=== PATIENT | male | born 1955 | race Caucasian/White ===

== ENCOUNTER 2019-12-18 23:34 | Emergency (ER) | payer BC ==
[2019-12-18] MEDS ORDERED: Diphtheria,Pertussis(Acell),Tetanus Vaccine 0.5 ML Syringe IM ONE (23:51)
--- NOTE | 2019-12-19 00:10 | EDM.PDOC ---
ED HPI GENERAL MEDICAL PROBLEM - General Chief Complaint: Head Injury Stated Complaint: head laceration/trip fall Time Seen by Provider: 12/18/19 23:35 - History of Present Illness INITIAL COMMENTS - FREE TEXT/NARRATIVE: HISTORY AND PHYSICAL: History of present illness: This is a 63-year-old gentleman who presents ER today secondary to injury to his forehead secondary to a trip and fall. Patient reports no dizziness or loss of consciousness. Patient denies any pain anywhere else in his body. Patient denies any pain to his lower extremities, hips, upper extremities, abdomen, chest, back. Patient reports no headache. Patient reports no nausea, vomiting. Patient has any recent fevers, shakes, chills. Patient reports he lost footing and fell to the ground. Patient reports no preceding dizziness or presyncopal episodes. Review of systems: As per history of present illness and below otherwise all systems reviewed and negative. Past medical history: As per history of present illness and as reviewed below otherwise noncontributory. Surgical history: As per history of present illness and as reviewed below otherwise noncontributory. Social history: No reported history of drug or alcohol abuse. Family history: As per history of present illness and as reviewed below otherwise noncontributory. Physical exam: Constitutional: Patient is oriented to person, place, and time. Appears well- developed and well-nourished. No distress. HEENT: Moist mucous membranes Head: Normocephalic. 5 cm laceration to forehead. Eyes: Right eye exhibits no discharge. Left eye exhibits no discharge. No scleral icterus Neck: Normal range of motion. No tracheal deviation present. Cardiovascular: Normal rate and regular rhythm. Pulmonary: Effort normal, no respiratory distress. Abdominal: No distention Musculoskeletal: Normal range of motion Neurologic: Alert and oriented to person, place and time. Skin: [place], warm and dry. Psychiatric: Normal mood and affect. Behavior is normal. Judgment and thought content normal. Nursing note and vital signs have been reviewed Patient has no C-spine T-spine or L-spine tenderness to palpation. Patient has no left upper or right upper quadrant tenderness to palpation. Patient has no crepitus to palpation to the anterior chest wall. Patient is neurologically intact. Patient does not present with any signs or or symptoms that would be consistent with acute intracranial, intra-abdominal, intrathoracic, or long bone injury. All long bones have been palpated and range of motion been performed and there is no evidence of any acute pathology. Diagnostics: CT head and C-spine CT the head revealed subdural hematoma over the left hemispheric convexity measuring 10 mm in thickness producing mass-effect on the left hemisphere and 5 mm of [id number] midline shift. Therapeutics: Sutured in ER (please see suture note) Td 0.5 IM Assessment and plan: This is a 63-year-old gentleman who presents ER today secondary to head injury from a trip and fall. Patient has a laceration to his forehead that approximately 5 cm which was sutured in the ED. CT scan of the C-spine revealed no acute fracture. CT scan of the head revealed a 10 mm subdural hematoma of the left hemispheric convexity with 5 mm of [id number] midline shift and mass-effect. Discussed with [facility] no ICU bed availability Discussed with [facility] no ICU bed availability Discussed with [facility] no ICU beds available Discussed with [facility] Dr. Abreu has agrees to assist with accepting patient for transfer for further evaluation of his subdural hematoma and trauma assessment. Critical Care: The high probability of sudden, clinically significant deterioration in the patient's condition required the highest level of my preparedness to intervene urgently. The services I provided to this patient were to treat and/or prevent clinically significant deterioration. Services included the following: chart data review, reviewing nursing notes and/or old charts, documentation time, consumer services consultant collaboration regarding findings and treatment options, medication orders and management, direct patient care, vital sign assessments and ordering, interpreting and reviewing diagnostic studies/lab tests. Aggregate critical care time includes only time during which I was engaged inwork directly related to the patient's care, as described above, whether at the bedside or elsewhere in the Emergency Department. It did not include time spent performing other reported procedures or the services of residents, students, nurses or physician assistants. Critical Care Time: 35 minutes Lacerated area - forehead Pain Score (Numeric/FACES): 2 - Related Data Allergies Allergy/AdvReac Type Severity Reaction Status Date / Time No Known Allergies Allergy Verified 12/19/19 00:15 Home Meds: Home Meds Potassium Chloride 10 meq PO DAILY 30 Days capsule.er 12/20/17 [Rx] atorvaSTATin [Lipitor] 40 mg PO BEDTIME 30 Days tablet 12/20/17 [Rx] lisinopriL [Prinivil] 5 mg PO DAILY 30 Days tablet 12/20/17 [Rx] metFORMIN [Glucophage XR] 500 mg PO BIDMEALS 30 Days tab.er 12/20/17 [Rx] Furosemide [Lasix] 20 mg PO DAILY 10/28/18 [History] Acetaminophen [Tylenol] 650 mg PO Q4HR PRN 12/19/19 [History] Alum Hydrox/Mag Hydrox/Simeth [Maalox Advanced] 1 tbsp PO Q6HR PRN 12/19/19 [History] Aspirin [Aspirin EC] 81 mg PO DAILY 12/19/19 [History] Carbamide Peroxide [Debrox 6.5% Otic Soln] 3 drop EARBOTH BID PRN 12/19/19 [History] Clobetasol [Clobetasol Propionate 0.05% Cream] 15 gm TOP BID 12/19/19 [History] Hypromellose [Goniotaire] 1 drop EYEBOTH Q6HR PRN 12/19/19 [History] Loperamide [Imodium] 4 mg PO ASDIRECTED PRN 12/19/19 [History] Mag Hydrox/Aluminum Hyd/Simeth [Mylanta Maximum Strength Liq] 2 tbsp PO ASDIRECTED PRN 12/19/19 [History] Magnesium Hydroxide [Milk of Magnesia] 2 tbsp PO ASDIRECTED PRN 12/19/19 [History] Phenytoin [Dilantin-125 Susp] 150 mg PO BID 12/19/19 [History] guaiFENesin [Adult Tussin Chest Congestion] 1 tsp PO Q4HR PRN 12/19/19 [History] Past Medical History - Past Health History Medical/Surgical History: Denies Medical/Surgical History Other Cardiovascular History: L bundle branch block Respiratory History: Reports: Bronchitis, Recurrent Dermatologic History: Reports: Other (See Below), Psoriasis Other Dermatologic History: skin tag on his back - Infectious Disease History Infectious Disease History: Reports: Chicken Pox - Past Surgical History Respiratory Surgical History: Reports: None Social & Family History - Family History Family Medical History: Noncontributory - Caffeine Use Caffeine Use: Reports: None ED ROS GENERAL - Review of Systems Review Of Systems: See Below ED EXAM, HEAD INJURY - Physical Exam Exam: See Below ED LACERATION/WOUND & MENDOZA PROC - Laceration/Wound Repair Forehead Lac/wound length in cm: 5 Appearance: Subcutaneous, Irregular, Clean Distal NVT: Neuro & Vascular Intact Anesthetic Type: Local Local Anesthesia - Lidocaine (Xylocaine): 1% Plain Local Anesthetic Volume: 3cc Skin Prep: Providone-Iodine (Betadine), Saline Saline irrigation (cc's): 250 Exploration/Debridement/Repair: Wound Explored, Explored to Base Closed with: Sutures Suture Size: 4-0 # of Sutures: 7 Suture Type: Nylon, Interrupted, Simple Course - Vital Signs Last Recorded V/S: Last Vital Signs Temp 96.8 F L 12/18/19 23:35 Pulse 84 12/19/19 03:30 Resp 18 12/19/19 03:30 BP 115/77 12/19/19 03:30 Pulse Ox 96 12/19/19 03:30 - Orders/Labs/Meds Labs: Laboratory Tests 12/19/19 12/19/19 12/19/19 Range/Units 01:26 01:26 01:26 WBC 10.80 (4.0-11.0) K/uL RBC 5.08 (4.50-5.90) M/uL Hgb 14.6 (13.0-17.0) g/dL Hct 43.5 (38.0-50.0) % MCV 85.6 (80.0-98.0) fL MCH 28.7 (27.0-32.0) pg MCHC 33.6 (31.0-37.0) g/dL RDW Std Deviation 50.5 (28.0-62.0) fl RDW Coeff of Isabella 16 H (11.0-15.0) % Plt Count 265 (150-400) K/uL MPV 9.90 (7.40-12.00) fL Neut % (Auto) 76.7 (48.0-80.0) % Lymph % (Auto) 11.9 L (16.0-40.0) % [place] % (Auto) 10.6 (0.0-15.0) % Eos % (Auto) 0.6 (0.0-7.0) % Baso % (Auto) 0.2 (0.0-1.5) % Neut # (Auto) 8.3 H (1.4-5.7) K/uL Lymph # (Auto) 1.3 (0.6-2.4) K/uL [place] # (Auto) 1.1 H (0.0-0.8) K/uL Eos # (Auto) 0.1 (0.0-0.7) K/uL Baso # (Auto) 0.0 (0.0-0.1) K/uL Nucleated RBC % 0.0 /100WBC Nucleated RBCs # 0 K/uL INR 1.05 Sodium 138 (136-148) mmol/L Potassium 4.1 (3.5-5.1) mmol/L Chloride 100 (98-107) mmol/L Carbon Dioxide 27.5 (21.0-32.0) mmol/L BUN 18 (7.0-18.0) mg/dL Creatinine 1.1 (0.8-1.3) mg/dL Est Cr Clr Drug Dosing TNP Estimated GFR (MDRD) > 60.0 ml/min Glucose 98 (74-106) mg/dL Calcium 8.7 (8.5-10.1) mg/dL Total Bilirubin 0.1 L (0.2-1.0) mg/dL AST 15 (15-37) IU/L ALT 19 (14-63) IU/L Alkaline Phosphatase 267 H (46-116) U/L Total Protein 6.2 L (6.4-8.2) g/dL Albumin 3.4 (3.4-5.0) g/dL Globulin 2.8 (2.6-4.0) g/dL Albumin/Globulin Ratio 1.2 (0.9-1.6) Meds: Medications Discontinued Medications Generic Name Dose Route Start Last Admin Trade Name Freq PRN Reason Stop Dose Admin Diphtheria/Tetanus/Acell Pertussis 0.5 ml 12/18/19 23:51 12/19/19 00:26 Adacel IM 12/18/19 23:52 0.5 ml .ONCE ONE Administration Lidocaine HCl 5 ml 12/18/19 23:50 12/19/19 00:28 Xylocaine-Mpf 1% INJECT 12/18/19 23:51 5 ml ONETIME ONE Administration Departure - Departure Time of Disposition: 01:14 Disposition: DC/Tfer to Acute Hospital 02 Condition: Fair Clinical Impression: Laceration of forehead, Fall in elderly patient, Head injury, SDH (subdural hematoma), Subdural hemorrhage - Discharge Information Referrals: PCP,None [Primary Care Provider] - Forms: ED Department Discharge Sepsis Event Note (ED) - Evaluation Sepsis Screening Result: No Definite Risk
--- NOTE | 2019-12-19 01:14 | CT ---
INDICATION: FALL, HEAD INJURY CT CERVICAL SPINE WITHOUT CONTRAST TECHNIQUE: Multidetector axial CT imaging was performed through the cervical spine, without contrast. Sagittal and coronal reconstructions were generated. FINDINGS: No acute fractures are identified. There is straightening of cervical lordosis, possibly due to muscle spasm. Osseous alignment is otherwise unremarkable and no subluxation is seen. Prevertebral soft tissues appear normal. There are multilevel cervical spine degenerative changes, including diffuse degenerative disc disease and scattered cervical facet joint degenerative changes. Included portions of the airway and lung apices are within normal limits. IMPRESSION: 1. Straightened lordosis, possibly due to muscle spasm. No fracture, subluxation, or other acute finding identified. 2. Cervical spondylosis, as noted above. PASTOR HERRERA MD [employer] Dictated by: Ricci Herrera MD @ 12/19/2019 01:12:33 (Electronically Signed)
--- NOTE | 2019-12-19 01:18 | CT ---
INDICATION: FALL, HEAD INJURY CT HEAD WITHOUT CONTRAST TECHNIQUE: Multiple axial CT images were performed through the head without intravenous contrast administration. COMPARISON: 10/28/[address] FINDINGS: There is a new subdural hematoma over the left hemispheric convexity measuring up to 10 millimeters in thickness. The subdural hematoma is of mixed density suggesting bleeding of different ages. Some of the blood is hyperdense and therefore acute. The subdural hematoma produces mass effect on the left hemisphere with narrowing of sulci over the hemispheric convexity, mild compression of the atrium of the left lateral ventricle, and approximately 5 millimeters of [id number] midline shift. There is mild diffuse age-related brain atrophy. There is a chronic infarct in the superior right cerebellum which is new compared to the previous exam. [place]-white differentiation elsewhere is within normal limits. Intracranial atherosclerotic vascular calcifications are noted. Scalp hematoma is noted over the frontal region. Osseous structures are within normal limits and no fractures are seen. Included portions of the paranasal sinuses show unchanged opacification of the left frontal and left sphenoid sinus, and improved aeration of the left ethmoid and maxillary sinuses compared to the previous exam. Mastoid air cells are normally aerated. IMPRESSION: 1. Subdural hematoma over the left hemispheric convexity measuring 10 millimeters in thickness, producing mass effect on the left hemisphere and 5 millimeters of [id number] midline shift. 2. Frontal scalp hematoma without fracture. 3. Mild age-related brain atrophy, chronic right cerebellar infarct, and intracranial atherosclerotic vascular calcifications. Results were called to Dr. Rollins at 1:10 a.m. on 12/19/2019. PASTOR HERRERA MD [employer] [facility] Dictated by Ricci Herrera MD @ 12/19/2019 1:17:07 AM Dictated by: Ricci Herrera MD @ 12/19/2019 01:18:05 (Electronically Signed)
[2019-12-19 02:39] LABS: BLOOD UREA NITROGEN,BUN 18 mg/dL (7.0-18.0); CARBON DIOXIDE,CO2 27.5 mmol/L (21.0-32.0); CHLORIDE,CL 100 mmol/L (98-107); GLUCOSE RANDOM 98 mg/dL (74-106); POTASSIUM,K 4.1 mmol/L (3.5-5.1); SODIUM,NA 138 mmol/L (136-148)
== END 2019-12-19 03:45 ==
LOC: MW.ED 23:34
DX: S06.5X0A Traumatic subdural hemorrhage without loss of consciousness, initial encounter (principal); S01.81XA Laceration without foreign body of other part of head, initial encounter; Z23 Encounter for immunization; W01.0XXA Fall on same level from slipping, tripping and stumbling without subsequent striking against object, initial encounter
CPT/HCPCS: 12013; 36415; 70450; 72125; 80053; 85025; 85610; 90471; 90715; 99291; J2001; 99285-25

== ENCOUNTER 2021-01-18 10:43 | Emergency (ER) | payer BC ==
[2021-01-18] MEDS ORDERED: Lidocaine 2% Viscous Solution 100 ML Bottle PO STA (11:43)
--- NOTE | 2021-01-18 11:43 | EDM.PDOC ---
ED HPI GENERAL MEDICAL PROBLEM - General Chief Complaint: Genitourinary Problem Stated Complaint: ISSUES WITH CATH Time Seen by Provider: 01/18/21 11:16 Source of Information: Reports: Patient History Limitations: Reports: Other (Poor historian) - History of Present Illness INITIAL COMMENTS - FREE TEXT/NARRATIVE: HISTORY AND PHYSICAL: History of present illness: The patient is a 65-year-old male who presents to the emergency room with complaints of clogged Bhatia catheter which started this morning. The patient lives in an assisted living facility and after complaining of a clogged Bhatia catheter the nursing staff attempted to flush the catheter without success. The patient was very uncomfortable. The patient started on Bactrim DS on 12/08/2020 for a urinary tract infection. The patient states that they inserted the Bhatia catheter after he urinated and a bladder scan showed urine retention. Patient denies any fever, chills, headache, change in vision, syncope or near syncope. Denies any chest pain, back pain, shortness of breath or cough. Denies any abdominal pain, nausea, vomiting, diarrhea, or constipation. Has not noted any blood in urine or stool. Patient has been eating and drinking appropriately. The patient is hemodynamically stable with a blood pressure of 147/90. He is tachycardic with a heart rate of 135. The patient has anxiety and distress due to his clogged Bhatia catheter. The patient is in no respiratory distress with a respiratory rate of 18 and an SPO2 of 97% on room air. Patient is afebrile with a temperature of 96. Review of systems: As per history of present illness and below otherwise all systems reviewed and negative. Past medical history: As per history of present illness and as reviewed below otherwise noncontribut ory. Surgical history: As per history of present illness and as reviewed below otherwise noncontributory. Social history: See social history for further information Family history: As per history of present illness and as reviewed below otherwise noncontributory. Physical exam: General: Well developed and well nourished. Alert and orientated x 3. Nontoxic in appearance and in no acute distress. Vital signs are stable and have been reviewed by me. Nursing notes were reviewed. HEENT: Atraumatic, normocephalic, pupils equal and reactive bilaterally, negative for conjunctival pallor or scleral icterus, mucous membranes moist, TMs normal bilaterally, throat clear, neck supple, nontender, trachea midline. No drooling or trismus noted. No meningeal signs. No hot potato voice noted. Lungs: Clear to auscultation bilaterally. No wheezes, rales, or rhonchi. Chest nontender. Normal work of breathing, no accessory muscles used. Heart: S1S2, regular rate and rhythm without overt murmur, gallops, or rubs. No JVD. No peripheral edema Abdomen: Soft, nondistended, RLQ tenderness. Normoactive bowel sounds. Negative for masses or costovertebral tenderness. Genitourinary/Rectal: Deferred. Skin: Intact, warm, dry. No lesions or rashes noted. Hematologic: No petechiae or purpra. Mucosa appropriate color and normal nail bed color and refill. Extremities: Atraumatic, moves all extremities per self without difficulty or deficits, negative for cords or calf pain. Neurovascular unremarkable. Neuro: Awake, alert, oriented. Cranial nerves II through XII unremarkable. Cerebellum unremarkable. Motor and sensory unremarkable throughout. Exam nonfocal. Psychiatric: Mood and affect are appropriate. Normal thought process. Answering questions appropriately. Notes: *This patient was seen and evaluated during the 2019 SARS-CoV-2 novel coronavirus pandemic period. Community viral transmission is ongoing at time of this encounter and the emergency department is operating under pandemic response procedures. The patient is a 65-year-old male who presents to the emergency department with complaints of his Bhatia catheter being clogged. The patient lives in assisted living facility and they attempted to flush the catheter without success. The patient is in distress from discomfort from the Bhatia catheter being clogged and is tachycardic. The patient has been on Bactrim DS since 12/08/2020 for a urinary tract infection. The Bhatia catheter was also placed on 12/08/2020 after a post void bladder scan showed urine retention. The Bhatia catheter leaked as the patient's underwear and pants were wet. The patient states that this has never happened previously. I will have the nurses get a bladder scan and change the Bhatia catheter. We will use an 18 [place]. We will send the urine for urinalysis. If the patient's heart rate decreases then we will discharge the patient. Post Bhatia cath insertion the patient's heart rate is 102. The patient is much calmer and states he feels much better. We will await the urinalysis. The urinalysis showed a large amount of blood, but after the trauma of the removal and insertion of the Bhatia catheter, I would expect the blood. The patient is feeling much better and heart rate is 100. I will discharge the patient back to the assisted living with instructions to continue his antibiotic and follow up with his primary care and possible need for a urologist. The patient is agreeable with the discharge plan. Also, the patient history telling improved post Bhatia catheter change. I think the patient was is so much discomfort that he was having a hard time communicating at the initial exam. I have talked with the patient about today's findings, in addition to providing specific details for plan of care. Reassessment at the time of disposition demonstrates that the patient is in no acute distress. The patient is stable for discharge, counseling was provided and we discussed in great detail signs and symptoms that would prompt them to return to the Emergency Department. Medication, follow up and supportive care measures were reviewed and discussed. Voices understanding and is agreeable to plan of care. Denies any further ques tions or concerns at this time. Diagnostics: Urinalysis Therapeutics: Bhatia catheter change Impression: Bhatia catheter problem Plan: 1. You were evaluated today on an emergent basis. Your clogged catheter and bladder discomfort was evaluated and your Bhatia catheter was changed. As you had leakage we put a 18 [place] Bhatia catheter. Your urinalysis showed improvement and as such make sure you complete your entire Bactrim DS. You will need to follow-up with your primary care and possibly see a urologist. You were to develop a fever or variance a clogged Bhatia catheter again please return to the emergency department. 2. You can alternate Tylenol and ibuprofen as needed for pain and fever management. 3. We encourage you to follow up with your primary care provider and/or recommended specialist in the next few days for re-evaluation and further care/management. 4. If your symptoms should worsen, new symptoms develop or any of the signs and symptoms we discussed should arise please return to the emergency room or call 911 (if needed). Definitive disposition and diagnosis as appropriate pending reevaluation and review of above. Bilateral Penis Pain Score (Numeric/FACES): 1 - Related Data Allergies Allergy/AdvReac Type Severity Reaction Status Date / Time No Known Allergies Allergy Verified 01/18/21 11:17 Home Meds: Home Meds Potassium Chloride 10 meq PO DAILY 30 Days capsule.er 12/20/17 [Rx] atorvaSTATin [Lipitor] 40 mg PO BEDTIME 30 Days tablet 12/20/17 [Rx] lisinopriL [Prinivil] 5 mg PO DAILY 30 Days tablet 12/20/17 [Rx] metFORMIN [Glucophage XR] 500 mg PO BIDMEALS 30 Days tab.er 12/20/17 [Rx] Furosemide [Lasix] 20 mg PO DAILY 10/28/18 [History] Acetaminophen [Tylenol] 650 mg PO Q4HR PRN 12/19/19 [History] Alum Hydrox/Mag Hydrox/Simeth [Maalox Advanced] 1 tbsp PO Q6HR PRN 12/19/19 [History] Aspirin [Aspirin EC] 81 mg PO DAILY 12/19/19 [History] Carbamide Peroxide [Debrox 6.5% Otic Soln] 3 drop EARBOTH BID PRN 12/19/19 [History] Clobetasol [Clobetasol Propionate 0.05% Cream] 15 gm TOP BID 12/19/19 [History] Hypromellose [Goniotaire] 1 drop EYEBOTH Q6HR PRN 12/19/19 [History] Loperamide [Imodium] 4 mg PO ASDIRECTED PRN 12/19/19 [History] Mag Hydrox/Aluminum Hyd/Simeth [Mylanta Maximum Strength Liq] 2 tbsp PO ASDIRECTED PRN 12/19/19 [History] Magnesium Hydroxide [Milk of Magnesia] 2 tbsp PO ASDIRECTED PRN 12/19/19 [History] Phenytoin [Dilantin-125 Susp] 150 mg PO BID 12/19/19 [History] guaiFENesin [Adult Tussin Chest Congestion] 1 tsp PO Q4HR PRN 12/19/19 [History] Past Medical History - Past Health History Medical/Surgical History: Denies Medical/Surgical History HEENT History: Reports: Other (See Below) Other HEENT History: dysphagia Cardiovascular History: Reports: Heart Failure, High Cholesterol, Hypertension Other Cardiovascular History: L bundle branch block Respiratory History: Reports: Bronchitis, Recurrent Musculoskeletal History: Reports: Other (See Below) Other Musculoskeletal History: malignant neoplasm cecum Neurological History: Reports: CVA, Seizure, Other (See Below) Other Neuro History: memory deficit, aphasia, cognitive communication deficit Endocrine/Metabolic History: Reports: Diabetes, Type II, Hypokalemia Dermatologic History: Reports: Other (See Below), Psoriasis Other Dermatologic History: skin tag on his back - Infectious Disease History Infectious Disease History: Reports: Chicken Pox - Past Surgical History Respiratory Surgical History: Reports: None Social & Family History - Family History Family Medical History: No Pertinent Family History - Caffeine Use Caffeine Use: Reports: None ED ROS GENERAL - Review of Systems Review Of Systems: Comprehensive ROS is negative, except as noted in HPI. ED EXAM, RENAL/ - Physical Exam Exam: See Below (Dictation) Course - Vital Signs Last Recorded V/S: Last Vital Signs Temp 97.1 F 01/18/21 13:30 Pulse 116 H 01/18/21 13:30 Resp 18 01/18/21 13:30 BP 110/80 01/18/21 12:48 Pulse Ox 93 L 01/18/21 13:30 - Orders/Labs/Meds Labs: Laboratory Tests 01/18/21 Range/Units 12:08 Urine Color YELLOW Urine Appearance CLEAR Urine pH 5.5 (5.0-8.0) Ur Specific [place] >= 1.030 (1.001-1.035) Urine Protein TRACE H (NEGATIVE) mg/dL Urine Glucose (UA) NEGATIVE (NEGATIVE) mg/dL Urine Ketones NEGATIVE (NEGATIVE) mg/dL Urine Occult Blood LARGE H (NEGATIVE) Urine Nitrite NEGATIVE (NEGATIVE) Urine Bilirubin NEGATIVE (NEGATIVE) Urine Urobilinogen 0.2 (<2.0) EU/dL Ur Leukocyte Esterase NEGATIVE (NEGATIVE) Urine RBC 20-30 (0-2/HPF) Urine WBC 0-5 (0-5/HPF) Ur Epithelial Cells RARE (NONE-FEW) Urine Bacteria NOT SEEN (NEGATIVE) Meds: Medications Discontinued Medications Generic Name Dose Route Start Last Admin Trade Name Freq PRN Reason Stop Dose Admin Lidocaine HCl 15 ml 01/18/21 11:43 01/18/21 12:51 Lidocaine 2% Viscous Solution 100 Ml Bottle PO 01/18/21 11:44 Not Given ASDIRECTED STA Lidocaine HCl 30 ml 01/18/21 11:44 01/18/21 12:49 Lidocaine 2% Jelly 30 Ml Tube MUCMEM 01/18/21 11:45 5 ml STAT STA Administration Departure - Departure Time of Disposition: 12:52 Disposition: Home, Self-Care 01 Condition: Good Clinical Impression: Bhatia catheter problem Qualifiers: Encounter type: initial encounter Qualified Code(s): T83.9XXA - Unspecified complication of genitourinary prosthetic device, implant and graft, initial encounter - Discharge Information *PRESCRIPTION DRUG MONITORING PROGRAM REVIEWED*: Not Applicable *COPY OF PRESCRIPTION DRUG MONITORING REPORT IN PATIENT ARMEN: Not Applicable Instructions: Indwelling Urinary Catheter Care, Adult Referrals: Bhaskar Curran MD [Primary Care Provider] - Forms: ED Department Discharge Additional Instructions: The following information is given to patients seen in the emergency department who are being discharged to home. This information is to outline your options for follow-up care. We provide all patients seen in our emergency department with a follow-up referral. The need for follow-up, as well as the timing and circumstances, are variable depending upon the specifics of your emergency department visit. If you don't have a primary care physician on staff, we will provide you with a referral. We always advise you to contact your personal physician following an emergency department visit to inform them of the circumstance of the visit and for follow-up with them and/or the need for any referrals to a consulting specialist. The emergency department will also refer you to a specialist when appropriate. This referral assures that you have the opportunity for follow-up care with a specialist. All of these measure are taken in an effort to provide you with optimal care, which includes your follow-up. Under all circumstances we always encourage you to contact your private physician who remains a resource for coordinating your care. When calling for follow-up care, please make the office aware that this follow-up is from your recent emergency room visit. If for any reason you are refused follow-up, please contact the [facility] Emergency Department at and asked to speak to the emergency department charge nurse. [facility] - [facility] [address] [place] [id number] [address] Plan: 1. You were evaluated today on an emergent basis. Your clogged catheter and bladder discomfort was evaluated and your Bhatia catheter was changed. As you had leakage we put a 18 [place] Bhatia catheter. Your urinalysis showed improvement and as such make sure you complete your entire Bactrim DS. You will need to follow-up with your primary care and possibly see a urologist. You were to develop a fever or variance a clogged Bhatia catheter again please return to the emergency department. 2. You can alternate Tylenol and ibuprofen as needed for pain and fever management. 3. We encourage you to follow up with your primary care provider and/or recommended specialist in the next few days for re-evaluation and further care/management. 4. If your symptoms should worsen, new symptoms develop or any of the signs and symptoms we discussed should arise please return to the emergency room or call 911 (if needed). Sepsis Event Note (ED) - Evaluation Sepsis Screening Result: No Definite Risk - Focused Exam Vital Signs: Vital Signs Temp Pulse Resp BP Pulse Ox 01/18/21 13:30 97.1 F 116 H 18 93 L 01/18/21 12:48 108 H 15 110/80 95 01/18/21 12:00 128 H 114/83 95 01/18/21 11:18 98.6 F 135 H 18 147/98 H 97
[2021-01-18] MEDS ORDERED: Lidocaine 2% Jelly 30 ML Tube MUCMEM STA (11:44)
== END 2021-01-18 13:36 | disposition home or self-care (01) ==
LOC: MW.ED 10:43
DX: T83.098A Other mechanical complication of other urinary catheter, initial encounter (principal); I11.0 Hypertensive heart disease with heart failure; I50.9 Heart failure, unspecified; E78.00 Pure hypercholesterolemia, unspecified; E11.9 Type 2 diabetes mellitus without complications; Z79.84 Long term (current) use of oral hypoglycemic drugs; Z79.82 Long term (current) use of aspirin; Z79.899 Other long term (current) drug therapy
CPT/HCPCS: 51702; 81001; 99283; A9270

== ENCOUNTER 2022-12-24 09:58 | Emergency (ER) | payer BC, MEDICARE ==
[2022-12-24 10:43] LABS: BASOPHILS ABSOLUTE AUTO 0.03 K/uL (0.00-0.20); BASOPHILS PERCENT AUTO 0.4 % (0.0-1.0); EOSINOPHILS ABSOLUTE AUTO 0.08 K/uL (0.00-0.45); EOSINOPHILS PERCENT AUTO 1.1 % (0.0-6.0); HEMATOCRIT 49.2 % (42.0-52.0); IMMATURE GRAN ABSOLUTE AUTO 0.06 K/uL (0.00-0.05); IMMATURE GRAN PERCENT AUTO 0.8 % (0.0-0.4); LYMPHOCYTES ABSOLUTE AUTO 0.88 K/uL (1.00-4.80); LYMPHOCYTES PERCENT AUTO 11.7 % (24.0-44.0); MEAN CORPUSCULAR HEMOGLOBIN 27.4 pg (28.0-32.0); MEAN CORPUSCULAR HGB CONC 32.5 g/dL (32.0-36.0); MEAN CORPUSCULAR VOLUME 84.2 fL (83.0-99.0); MEAN PLATELET VOLUME 11.3 fL (9.4-12.4); MONOCYTES ABSOLUTE AUTO 0.83 K/uL (0.00-0.80); MONOCYTES PERCENT AUTO 11.1 % (0.0-8.0); NEUTROPHILS ABSOLUTE AUTO 5.61 K/uL (1.80-7.70); NEUTROPHILS PERCENT AUTO 74.9 % (41.0-71.0); PLATELET COUNT,PLT 181 K/uL (150-400); RED BLOOD CELL COUNT 5.84 M/uL (4.52-5.90); WHITE BLOOD CELL COUNT,WBC 7.49 K/uL (3.9-11.3)
[2022-12-24 11:06] LABS: CORONAVIRUS COVID-19 NAA NEGATIVE (NEGATIVE); INFLUENZA A NAA NEGATIVE (NEGATIVE); INFLUENZA B NAA NEGATIVE (NEGATIVE)
[2022-12-24] MEDS ORDERED: Doxycycline 100 MG Cap PO ONE (11:40)
[2022-12-24 11:57] LABS: A/G RATIO 1.1 (0.9-1.6); ALBUMIN 3.6 g/dL (3.4-5.0); BILIRUBIN TOTAL 0.8 mg/dL (0.2-1.0); CALCIUM 9.3 mg/dL (8.5-10.1); CARBON DIOXIDE,CO2 21.2 mmol/L (21.0-32.0); CREATININE 1.7 mg/dL (0.8-1.3); EST CRCL DRUG DOSING (CG) 46.28 mL/min; POTASSIUM,K 3.9 mmol/L (3.5-5.1); PROTEIN TOTAL,TP 6.8 g/dL (6.4-8.2)
[2022-12-24] MEDS ORDERED: Furosemide 40 MG Tab PO ONE (12:07)
== END 2022-12-24 12:25 | disposition home or self-care (01) ==
LOC: MW.ED 09:58
DX: J18.9 Pneumonia, unspecified organism (principal); I11.0 Hypertensive heart disease with heart failure; I50.9 Heart failure, unspecified; E11.9 Type 2 diabetes mellitus without complications; E78.00 Pure hypercholesterolemia, unspecified; Z86.73 Personal history of transient ischemic attack (TIA), and cerebral infarction without residual deficits; Z20.822 Contact with and (suspected) exposure to COVID-19; Z79.82 Long term (current) use of aspirin; Z79.84 Long term (current) use of oral hypoglycemic drugs; Z79.899 Other long term (current) drug therapy
CPT/HCPCS: 0240U; 36415; 71045; 80053; 83880; 84484; 85025; 93005; 99285; A9270; 93010; 99283

== ENCOUNTER 2023-02-01 20:08 | Inpatient (IN) | payer MEDICARE ==
[2023-02-01] MEDS ORDERED: Cefepime 2 GM in Sodium Chloride 0.9% 50 ML IV ONE (20:13)
[2023-02-01] MEDS ORDERED: Sodium Chloride 0.9% 10 ML Syringe FLUSH PRN (20:13)
[2023-02-01] MEDS ORDERED: Sodium Chloride 0.9% 500 ML IV ONE (20:13)
[2023-02-01] MEDS ORDERED: Sodium Chloride 0.9% 2.5 ML Syringe FLUSH PRN (20:13)
[2023-02-01 20:28] LABS: BASE EXCESS VENOUS -2.9 (-2.0-3.0); BASOPHILS ABSOLUTE AUTO 0.02 K/uL (0.00-0.20); BASOPHILS PERCENT AUTO 0.2 % (0.0-1.0); EOSINOPHILS ABSOLUTE AUTO 0.05 K/uL (0.00-0.45); EOSINOPHILS PERCENT AUTO 0.5 % (0.0-6.0); HEMATOCRIT 49.4 % (42.0-52.0); HEMOGLOBIN 16.1 g/dL (14.0-18.0); IMMATURE GRAN ABSOLUTE AUTO 0.02 K/uL (0.00-0.05); IMMATURE GRAN PERCENT AUTO 0.2 % (0.0-0.4); LYMPHOCYTES ABSOLUTE AUTO 0.44 K/uL (1.00-4.80); LYMPHOCYTES PERCENT AUTO 4.8 % (24.0-44.0); MEAN CORPUSCULAR HEMOGLOBIN 26.6 pg (28.0-32.0); MEAN CORPUSCULAR HGB CONC 32.6 g/dL (32.0-36.0); MEAN CORPUSCULAR VOLUME 81.7 fL (83.0-99.0); MEAN PLATELET VOLUME 10.3 fL (9.4-12.4); MONOCYTES ABSOLUTE AUTO 0.81 K/uL (0.00-0.80); MONOCYTES PERCENT AUTO 8.9 % (0.0-8.0); NEUTROPHILS ABSOLUTE AUTO 7.78 K/uL (1.80-7.70); NEUTROPHILS PERCENT AUTO 85.4 % (41.0-71.0); PH,VENOUS 7.38 (7.31-7.41); PLATELET COUNT,PLT 173 K/uL (150-400); RED BLOOD CELL COUNT 6.05 M/uL (4.52-5.90); WHITE BLOOD CELL COUNT,WBC 9.12 K/uL (3.9-11.3)
[2023-02-01 21:38] LABS: CORONAVIRUS COVID-19 NAA NEGATIVE (NEGATIVE); INFLUENZA A NAA NEGATIVE (NEGATIVE); INFLUENZA B NAA NEGATIVE (NEGATIVE)
[2023-02-01 21:40] LABS: ALANINE AMINOTRANSFERASE,ALT 23 IU/L (14-63); ALBUMIN 2.9 g/dL (3.4-5.0); ALKALINE PHOSPHATASE 310 U/L (46-116); ASPARTATE AMNIOTRANSFERASE,AST 24 IU/L (15-37); BILIRUBIN TOTAL 0.9 mg/dL (0.2-1.0); BLOOD UREA NITROGEN,BUN 24 mg/dL (7.0-18.0); CALCIUM 8.4 mg/dL (8.5-10.1); CARBON DIOXIDE,CO2 23.4 mmol/L (21.0-32.0); CHLORIDE,CL 104 mmol/L (98-107); CREATINE KINASE,CK 213 U/L (26-308); CREATININE 1.6 mg/dL (0.8-1.3); GLUCOSE RANDOM 98 mg/dL (74-106); LIPASE 35 U/L (16-77); POTASSIUM,K 3.6 mmol/L (3.5-5.1); PROTEIN TOTAL,TP 5.9 g/dL (6.4-8.2); SODIUM,NA 139 mmol/L (136-148)
[2023-02-01 21:42] LABS: ESTIMATED GFR 47 mL/min (>60); LACTIC ACID 2.8 mmol/L (0.4-2.0)
[2023-02-01 22:14] LABS: COLOR,URINE YELLOW; GLUCOSE,URINE NEGATIVE (NEGATIVE); KETONES,URINE NEGATIVE (NEGATIVE); LEUKOCYTE ESTERASE,URINE NEGATIVE (NEGATIVE); NITRITE,URINE NEGATIVE (NEGATIVE); OCCULT BLOOD,URINE NEGATIVE (NEGATIVE); PROTEIN,URINE TRACE mg/dL (NEGATIVE); UROBILINOGEN,URINE 0.2 EU/dL (<2.0)
[2023-02-01 22:27] LABS: BILIRUBIN,URINE SMALL (NEGATIVE)
[2023-02-01 22:28] LABS: APPEARANCE,URINE HAZY; BACTERIA,URINE 1+ (NEGATIVE); COARSE GRANULAR CASTS,URINE 0-2 (NEGATIVE); EPITHELIAL CELLS,URINE OCCASIONAL (NONE-FEW); RBC,URINE 0-2 (0-2/HPF); WBC,URINE 0-5 (0-5/HPF)
[2023-02-02] MEDS: Sodium Chloride 0.9% 500 ML IV SCH ×3 (00:55→08:35)
[2023-02-02] MEDS ORDERED: 50% Dextrose in Water 50 ML Syringe IVPUSH PRN (02:17)
[2023-02-02] MEDS ORDERED: Glucagon,Human Recombinant 1 MG Vial IM PRN (02:17)
[2023-02-02] MEDS ORDERED: Ondansetron 4 MG/2 ML SDV IVPUSH PRN (02:19)
[2023-02-02] MEDS ORDERED: Acetaminophen 325 MG Tab PO PRN (02:19)
[2023-02-02] MEDS ORDERED: Albuterol/Ipratropium 3.0-0.5 MG/3 ML Neb Soln NEB PRN (02:21)
[2023-02-02] MEDS ORDERED: metroNIDAZOLE/Normal Saline 500 MG in Premix Bag 1 BAG IV SCH ×2 (03:00→03:30)
[2023-02-02 06:43] LABS: BASOPHILS ABSOLUTE AUTO 0.04 K/uL (0.00-0.20); BASOPHILS PERCENT AUTO 0.6 % (0.0-1.0); EOSINOPHILS ABSOLUTE AUTO 0.06 K/uL (0.00-0.45); EOSINOPHILS PERCENT AUTO 0.9 % (0.0-6.0); HEMATOCRIT 46.7 % (42.0-52.0); IMMATURE GRAN ABSOLUTE AUTO 0.02 K/uL (0.00-0.05); IMMATURE GRAN PERCENT AUTO 0.3 % (0.0-0.4); LYMPHOCYTES PERCENT AUTO 7.2 % (24.0-44.0); MEAN CORPUSCULAR HEMOGLOBIN 26.5 pg (28.0-32.0); MEAN CORPUSCULAR HGB CONC 32.1 g/dL (32.0-36.0); MEAN CORPUSCULAR VOLUME 82.7 fL (83.0-99.0); MEAN PLATELET VOLUME 10.8 fL (9.4-12.4); MONOCYTES ABSOLUTE AUTO 0.87 K/uL (0.00-0.80); MONOCYTES PERCENT AUTO 12.5 % (0.0-8.0); NEUTROPHILS ABSOLUTE AUTO 5.49 K/uL (1.80-7.70); NEUTROPHILS PERCENT AUTO 78.5 % (41.0-71.0); PLATELET COUNT,PLT 153 K/uL (150-400); RED BLOOD CELL COUNT 5.65 M/uL (4.52-5.90); WHITE BLOOD CELL COUNT,WBC 6.98 K/uL (3.9-11.3)
[2023-02-02 07:00] LABS: CALCIUM 8.1 mg/dL (8.5-10.1); CARBON DIOXIDE,CO2 24.5 mmol/L (21.0-32.0); CREATININE 1.3 mg/dL (0.8-1.3); EST CRCL DRUG DOSING (CG) 60.52 mL/min; POTASSIUM,K 3.1 mmol/L (3.5-5.1)
[2023-02-02] MEDS ORDERED: Nystatin Topical Powder 15 GM Bottle TOP PRN (07:44)
[2023-02-02] MEDS ORDERED: Sodium Chloride 0.9% 500 ML IV ONE (08:10)
[2023-02-02] MEDS ORDERED: Potassium Chloride 20 MEQ Tab.ER PO ONE (08:12)
[2023-02-02] MEDS: Insulin Aspart 100 Units/ML 3 ML Pen SUBCUT SCH ×3 (08:30→16:52)
[2023-02-02] MEDS: Cefepime 2 GM in Sodium Chloride 0.9% 50 ML IV SCH ×2 (08:38→21:08)
[2023-02-02] MEDS ORDERED: Cefepime 2 GM in Sodium Chloride 0.9% 50 ML IV SCH (09:00)
[2023-02-02] MEDS: Furosemide 40 MG Tab PO SCH (10:41)
[2023-02-02] MEDS ORDERED: Enoxaparin 40 MG/0.4 ML Syringe SUBCUT SCH (13:00)
[2023-02-02] MEDS ORDERED: Tamsulosin 0.4 MG Cap.ER PO SCH (21:00)
[2023-02-03 06:56] LABS: BASOPHILS ABSOLUTE AUTO 0.05 K/uL (0.00-0.20); BASOPHILS PERCENT AUTO 0.9 % (0.0-1.0); EOSINOPHILS ABSOLUTE AUTO 0.08 K/uL (0.00-0.45); EOSINOPHILS PERCENT AUTO 1.4 % (0.0-6.0); HEMATOCRIT 48.8 % (42.0-52.0); HEMOGLOBIN 15.9 g/dL (14.0-18.0); IMMATURE GRAN ABSOLUTE AUTO 0.03 K/uL (0.00-0.05); IMMATURE GRAN PERCENT AUTO 0.5 % (0.0-0.4); LYMPHOCYTES ABSOLUTE AUTO 0.57 K/uL (1.00-4.80); LYMPHOCYTES PERCENT AUTO 9.9 % (24.0-44.0); MEAN CORPUSCULAR HEMOGLOBIN 27.2 pg (28.0-32.0); MEAN CORPUSCULAR HGB CONC 32.6 g/dL (32.0-36.0); MEAN CORPUSCULAR VOLUME 83.4 fL (83.0-99.0); MEAN PLATELET VOLUME 10.3 fL (9.4-12.4); MONOCYTES ABSOLUTE AUTO 0.77 K/uL (0.00-0.80); MONOCYTES PERCENT AUTO 13.3 % (0.0-8.0); NEUTROPHILS ABSOLUTE AUTO 4.27 K/uL (1.80-7.70); PLATELET COUNT,PLT 136 K/uL (150-400); RED BLOOD CELL COUNT 5.85 M/uL (4.52-5.90); WHITE BLOOD CELL COUNT,WBC 5.77 K/uL (3.9-11.3)
[2023-02-03] MEDS: Insulin Aspart 100 Units/ML 3 ML Pen SUBCUT SCH ×3 (07:48→12:17)
[2023-02-03] MEDS: Cefepime 2 GM in Sodium Chloride 0.9% 50 ML IV SCH (08:44)
[2023-02-03] MEDS: Furosemide 40 MG Tab PO SCH (08:44)
[2023-02-03] MEDS ORDERED: Furosemide 40 MG/4 ML VIAL IVPUSH ONE (08:59)
[2023-02-03] MEDS ORDERED: Lisinopril 5 MG Tab PO SCH (09:00)
[2023-02-03 09:16] LABS: CALCIUM 8.7 mg/dL (8.5-10.1); CARBON DIOXIDE,CO2 18.7 mmol/L (21.0-32.0); CREATININE 1.4 mg/dL (0.8-1.3); EST CRCL DRUG DOSING (CG) 56.2 mL/min; POTASSIUM,K 3.9 mmol/L (3.5-5.1)
[2023-02-03] MEDS ORDERED: Magnesium Sulfate/Water 2 GM in Premix Bag 1 BAG IV ONE (09:58)
[2023-02-03] MEDS ORDERED: atorvaSTATin 40 MG Tab PO SCH (21:00)
== END 2023-02-03 13:45 | disposition other institution (70) | DRG 690 ==
LOC: MW.ED 20:08 → MW.MS 02-02 01:31
PROVIDERS: ADMIT Family Medicine; ATTEND Family Medicine
DX: N39.0 Urinary tract infection, site not specified (principal); I50.9 Heart failure, unspecified; E86.0 Dehydration; S41.112A Laceration without foreign body of left upper arm, initial encounter; S41.111A Laceration without foreign body of right upper arm, initial encounter; E11.9 Type 2 diabetes mellitus without complications; Z11.52 Encounter for screening for COVID-19; R29.6 Repeated falls; I11.0 Hypertensive heart disease with heart failure; E78.00 Pure hypercholesterolemia, unspecified; I44.7 Left bundle-branch block, unspecified; K21.9 Gastro-esophageal reflux disease without esophagitis; G71.00 Muscular dystrophy, unspecified; I69.320 Aphasia following cerebral infarction; I69.311 Memory deficit following cerebral infarction; N40.0 Benign prostatic hyperplasia without lower urinary tract symptoms; E66.9 Obesity, unspecified; W18.30XA Fall on same level, unspecified, initial encounter; Z98.890 Other specified postprocedural states; Z86.73 Personal history of transient ischemic attack (TIA), and cerebral infarction without residual deficits; Z79.899 Other long term (current) drug therapy; Z79.84 Long term (current) use of oral hypoglycemic drugs; Z68.34 Body mass index [BMI] 34.0-34.9, adult
CPT/HCPCS: 0240U; 36415; 71045; 80048; 80053; 81001; 82550; 82803; 82947; 83605; 83690; 83735; 83880; 84484; 85025; 87040; 93005; 96365; 97161; 97530; 99285; 93010; 99291; A9270-GY; J0692; J1650; J1940; J3475; J3490; J7040; J7620-GY

== ENCOUNTER 2023-03-23 12:47 | Emergency (ER) | payer MEDICARE, OTHER ==
[2023-03-23] MEDS ORDERED: Sodium Chloride 0.9% 10 ML Syringe FLUSH PRN (12:52)
[2023-03-23] MEDS ORDERED: Sodium Chloride 0.9% 2.5 ML Syringe FLUSH PRN (12:52)
[2023-03-23] MEDS ORDERED: Dextrose 10% in Water 100 ML IV SCH (13:15)
[2023-03-23 13:19] LABS: BASOPHILS ABSOLUTE AUTO 0.01 K/uL (0.00-0.20); BASOPHILS PERCENT AUTO 0.2 % (0.0-1.0); EOSINOPHILS ABSOLUTE AUTO 0.03 K/uL (0.00-0.45); EOSINOPHILS PERCENT AUTO 0.5 % (0.0-6.0); HEMATOCRIT 44.9 % (42.0-52.0); IMMATURE GRAN ABSOLUTE AUTO 0.03 K/uL (0.00-0.05); IMMATURE GRAN PERCENT AUTO 0.5 % (0.0-0.4); LYMPHOCYTES ABSOLUTE AUTO 0.16 K/uL (1.00-4.80); LYMPHOCYTES PERCENT AUTO 2.8 % (24.0-44.0); MEAN CORPUSCULAR HEMOGLOBIN 27.9 pg (28.0-32.0); MEAN CORPUSCULAR HGB CONC 31.2 g/dL (32.0-36.0); MEAN CORPUSCULAR VOLUME 89.6 fL (83.0-99.0); MONOCYTES ABSOLUTE AUTO 0.45 K/uL (0.00-0.80); MONOCYTES PERCENT AUTO 7.9 % (0.0-8.0); NEUTROPHILS ABSOLUTE AUTO 4.99 K/uL (1.80-7.70); NEUTROPHILS PERCENT AUTO 88.1 % (41.0-71.0); NRBC ABSOLUTE 0.09 K/uL (0.00-0.02); NRBC PERCENT 1.6 /100WBC (0.0-0.2); PLATELET COUNT,PLT 123 K/uL (150-400); RED BLOOD CELL COUNT 5.01 M/uL (4.52-5.90); WHITE BLOOD CELL COUNT,WBC 5.67 K/uL (3.9-11.3)
[2023-03-23 13:20] LABS: BASE EXCESS VENOUS 4.2 (-2.0-3.0); PH,VENOUS 7.28 (7.31-7.41)
[2023-03-23 13:49] LABS: A/G RATIO 0.8 (0.9-1.6); ALANINE AMINOTRANSFERASE,ALT 57 IU/L (14-63); ALBUMIN 2.7 g/dL (3.4-5.0); ALKALINE PHOSPHATASE 311 U/L (46-116); ASPARTATE AMNIOTRANSFERASE,AST 49 IU/L (15-37); BILIRUBIN TOTAL 0.5 mg/dL (0.2-1.0); BLOOD UREA NITROGEN,BUN 49 mg/dL (7.0-18.0); CARBON DIOXIDE,CO2 31.9 mmol/L (21.0-32.0); CHLORIDE,CL 105 mmol/L (98-107); CREATINE KINASE,CK 47 U/L (26-308); CREATININE 1.6 mg/dL (0.8-1.3); GLUCOSE RANDOM 62 mg/dL (74-106); POTASSIUM,K 4.8 mmol/L (3.5-5.1); PROTEIN TOTAL,TP 6.2 g/dL (6.4-8.2); SODIUM,NA 144 mmol/L (136-148)
[2023-03-23] MEDS ORDERED: Sodium Chloride 0.9% 500 ML IV STA (13:51)
[2023-03-23] MEDS ORDERED: Cefepime 2 GM in Sodium Chloride 0.9% 50 ML IV ONE (13:52)
[2023-03-23 13:54] LABS: ESTIMATED GFR 47 mL/min (>60)
[2023-03-23] MEDS ORDERED: VANCOmycin 2 GM/400 ML 2 GM in Premix Bag 1 BAG IV ONE (14:00)
[2023-03-23] MEDS ORDERED: Bumetanide 1 MG/4 ML MDV IVPUSH ONE (14:24)
[2023-03-23 15:00] LABS: LACTIC ACID 1.4 mmol/L (0.4-2.0)
== END 2023-03-23 17:51 ==
LOC: MW.ED 12:47
DX: G93.40 Encephalopathy, unspecified (principal); J96.11 Chronic respiratory failure with hypoxia; I11.0 Hypertensive heart disease with heart failure; I50.9 Heart failure, unspecified; K21.9 Gastro-esophageal reflux disease without esophagitis; E11.9 Type 2 diabetes mellitus without complications; E78.00 Pure hypercholesterolemia, unspecified; Z79.899 Other long term (current) drug therapy
CPT/HCPCS: 36415; 70450; 71045; 80053; 82140; 82550; 82803; 82947; 83605; 84484; 85025; 87040; 93005; 94660; 96365; 96375; 99285; J0692; J3490; J7040; 93010; 99291